=== PATIENT | male | born 1970 | race Caucasian/White ===

== ENCOUNTER 2021-02-22 21:39 | Emergency (ER) | payer BC, OTHER ==
[2021-02-22] MEDS ORDERED: MORPHINE SULFATE 4 MG/ML SYRINGE IV STA (22:39)
--- NOTE | 2021-02-22 22:39 | ED ---
Abdominal Pain HPI - General Chief Complaint: Abdominal Pain Stated Complaint: Stomach pain Time Seen by Provider: 02/22/21 21:57 Source: patient Mode of arrival: ambulatory Limitations: no limitations - History of Present Illness Initial Comments: This patient is a 50-year-old man with history of cirrhosis who presents for evaluation due to increase in abdominal distention and decreased drainage from his abdominal dialysis catheter. The patient states that he has had indwelling catheter used to drain his ascites going back for over a year. He states that he is usually able to drain approximately 2 L per day of fluid from his abdomen. Last week he was admitted because the dialysis catheter had stopped draining his ascites. It been admitted here on February 15, diagnosed with bacterial peritonitis, and stayed in the hospital until February 19. The catheter had resumed draining and he was feeling better. The patient did go home with oral antibiotics and was to follow-up with his [facility] physicians. Patient states that in the interim his catheter was draining less and today it has not drained at all. He is having increasing pressure type pain to the abdomen. No fever or chills. No other symptoms. MD Complaint: abdominal pain -: days(s) Location: diffuse Radiation: none Migration to: no migration Severity: moderate Quality: aching, fullness Consistency: constant Improves With: nothing Worsens With: nothing Associated Symptoms: denies other symptoms - Related Data Home Medications Medication Instructions Recorded Confirmed Ascorbic Acid [Vitamin C] 500 mg PO DAILY 02/15/21 02/23/21 Cholecalciferol [Vitamin D3 (25 150 mcg PO DAILY 02/15/21 02/23/21 Mcg = 1000 Iu)] Ferrous Sulfate [Iron (65 MG 325 mg PO DAILY 02/15/21 02/23/21 Elemental)] Folic Acid 0.4 mg PO BID 02/15/21 02/23/21 Inulin/Chromium Picolinate [Fiber 1 tab PO DAILY 02/15/21 02/23/21 Gummies Chew] L.acidoph,Paracasei, B.lactis 1 cap PO DAILY 02/15/21 02/23/21 [Probiotic] Multivitamins, Thera [Multivitamin 1 tab PO DAILY 02/15/21 02/23/21 (formulary)] Super B Complex 1 tab PO DAILY 02/15/21 02/23/21 Turmeric Root Extract [Turmeric] 500 mg PO DAILY 02/15/21 02/23/21 metFORMIN HCL ER [Glucophage XR] 1,000 mg PO DAILY 02/15/21 02/23/21 sitaGLIPtin PHOS/metFORMIN HCL 1 tab PO HS 02/15/21 02/23/21 [Janumet Xr 100-1,000 mg Tablet] Previous Rx's Medication Instructions Recorded Cefuroxime Axetil [Ceftin] 500 mg PO BID 10 Days #20 tab 02/19/21 Allergies Allergy/AdvReac Type Severity Reaction Status Date / Time codeine Allergy Unknown Verified 02/23/21 07:07 Review of Systems ROS Statement: Those systems with pertinent positive or pertinent negative responses have been documented in the HPI. ROS Other: All systems not noted in ROS Statement are negative. Constitutional: Denies: fever, chills, weakness Respiratory: Denies: cough, dyspnea Cardiovascular: Reports: edema (Chronic bilateral leg edema). Denies: chest pain, palpitations Gastrointestinal: Reports: as per HPI, abdominal pain. Denies: nausea, vomiting, diarrhea, constipation Genitourinary: Denies: dysuria, hematuria Musculoskeletal: Denies: back pain Skin: Denies: rash Neurological: Denies: headache, weakness Past Medical History Past Medical History: Diabetes Mellitus, Hyperlipidemia, Hypertension Additional Past Medical History / Comment(s): colon ca History of Any Multi-Drug Resistant Organisms: None Reported Additional Past Surgical History / Comment(s): peritoneal cath placed Past Psychological History: No Psychological Hx Reported Smoking Status: Never smoker Past Alcohol Use History: None Reported Past Drug Use History: Marijuana - Past Family History Father Family Medical History: Cancer General Exam General appearance: alert, in no apparent distress Head exam: Present: atraumatic, normocephalic Eye exam: Present: normal appearance. Absent: scleral icterus, conjunctival injection Neck exam: Present: normal inspection Respiratory exam: Present: normal lung sounds bilaterally. Absent: respiratory distress, wheezes, rales, rhonchi, stridor Cardiovascular Exam: Present: regular rate, normal rhythm, normal heart sounds. Absent: systolic murmur, diastolic murmur, rubs, gallop GI/Abdominal exam: Present: soft, distended, normal bowel sounds. Absent: tenderness, guarding, rebound, rigid, mass, pulsatile mass, hernia Extremities exam: Present: normal inspection, normal capillary refill. Absent: pedal edema, calf tenderness Back exam: Present: normal inspection. Absent: CVA tenderness (R), CVA tenderness (L) Neurological exam: Present: alert Skin exam: Present: warm, dry, intact, normal color. Absent: rash Course Vital Signs 02/22/21 02/23/21 02/23/21 21:42 00:59 04:36 Temperature 98 F 97.4 F L Pulse Rate 100 82 84 Respiratory 19 18 14 Rate Blood Pressure 131/85 116/79 111/79 O2 Sat by Pulse 98 99 Oximetry 02/23/21 02/23/21 02/23/21 04:46 04:56 05:00 Temperature 97.4 F L 97.5 F L Pulse Rate 80 76 Respiratory 17 14 Rate Blood Pressure 100/72 101/73 O2 Sat by Pulse 99 98 Oximetry 02/23/21 02/23/21 02/23/21 05:22 05:26 06:19 Temperature 97.5 F L 97.8 F Pulse Rate 71 72 Respiratory 14 14 Rate Blood Pressure 98/71 100/72 O2 Sat by Pulse 98 100 Oximetry - Reevaluation(s) Reevaluation #1: 02/23/21 02:30 Case is discussed with sound physician, requests to see if [facility] would consider transfer of this patient given that his primary informatics scientist is through the [place]. Discussed case with Dr. Lawson there, and they are currently unable to accept patient for transfer given capacity issues. Medical Decision Making - Lab Data Result diagrams: 02/22/21 22:46 02/22/21 23:07 Lab Results 02/22/21 02/22/21 02/22/21 Range/Units 22:46 23:07 23:07 WBC 3.9 (3.8-10.6) k/uL RBC 2.45 L (4.30-5.90) m/uL Hgb 6.0 L* (13.0-17.5) gm/dL Hct 19.4 L* (39.0-53.0) % MCV 79.1 L (80.0-100.0) fL MCH 24.5 L (25.0-35.0) pg MCHC 31.0 (31.0-37.0) g/dL RDW 15.8 H (11.5-15.5) % Plt Count 335 (150-450) k/uL MPV 7.8 Neutrophils % 70 % Lymphocytes % 15 % Monocytes % 7 % Eosinophils % 5 % Basophils % 1 % Neutrophils # 2.8 (1.3-7.7) k/uL Lymphocytes # 0.6 L (1.0-4.8) k/uL Monocytes # 0.3 (0-1.0) k/uL Eosinophils # 0.2 (0-0.7) k/uL Basophils # 0.0 (0-0.2) k/uL Hypochromasia Moderate Poikilocytosis Slight ESR 54 H (0-15) mm/hr PT 10.7 (9.0-12.0) sec INR 1.0 (<1.2) APTT 22.8 (22.0-30.0) sec Sodium 132 L (137-145) mmol/L Potassium 3.7 (3.5-5.1) mmol/L Chloride 105 (98-107) mmol/L Carbon Dioxide 23 (22-30) mmol/L Anion Gap 4 mmol/L BUN 24 H (9-20) mg/dL Creatinine 1.41 H (0.66-1.25) mg/dL Est GFR (CKD-EPI)AfAm 68 (>60 ml/min/1.73 sqM) Est GFR (CKD-EPI)NonAf 59 (>60 ml/min/1.73 sqM) Glucose 197 H (74-99) mg/dL Calcium 7.5 L (8.4-10.2) mg/dL Total Bilirubin <0.1 L (0.2-1.3) mg/dL AST 25 (17-59) U/L ALT 15 (4-49) U/L Alkaline Phosphatase 242 H (38-126) U/L Total Protein 4.6 L (6.3-8.2) g/dL Albumin 1.7 L (3.5-5.0) g/dL Blood Type Blood Type Confirm Blood Type Recheck Bld Type Recheck Status Antibody Screen Crossmatch Spec Expiration Date 02/23/21 02/23/21 Range/Units 02:45 02:51 WBC (3.8-10.6) k/uL RBC (4.30-5.90) m/uL Hgb (13.0-17.5) gm/dL Hct (39.0-53.0) % MCV (80.0-100.0) fL MCH (25.0-35.0) pg MCHC (31.0-37.0) g/dL RDW (11.5-15.5) % Plt Count (150-450) k/uL MPV Neutrophils % % Lymphocytes % % Monocytes % % Eosinophils % % Basophils % % Neutrophils # (1.3-7.7) k/uL Lymphocytes # (1.0-4.8) k/uL Monocytes # (0-1.0) k/uL Eosinophils # (0-0.7) k/uL Basophils # (0-0.2) k/uL Hypochromasia Poikilocytosis ESR (0-15) mm/hr PT (9.0-12.0) sec INR (<1.2) APTT (22.0-30.0) sec Sodium (137-145) mmol/L Potassium (3.5-5.1) mmol/L Chloride (98-107) mmol/L Carbon Dioxide (22-30) mmol/L Anion Gap mmol/L BUN (9-20) mg/dL Creatinine (0.66-1.25) mg/dL Est GFR (CKD-EPI)AfAm (>60 ml/min/1.73 sqM) Est GFR (CKD-EPI)NonAf (>60 ml/min/1.73 sqM) Glucose (74-99) mg/dL Calcium (8.4-10.2) mg/dL Total Bilirubin (0.2-1.3) mg/dL AST (17-59) U/L ALT (4-49) U/L Alkaline Phosphatase (38-126) U/L Total Protein (6.3-8.2) g/dL Albumin (3.5-5.0) g/dL Blood Type O Positive Blood Type Confirm O Positive Blood Type Recheck No Previous Record Bld Type Recheck Status CABO Indicated Antibody Screen NEGATIVE Crossmatch See Detail Spec Expiration Date 02/26/20212344 Disposition Clinical Impression: Ascites, Anemia Disposition: HOME SELF-CARE Condition: Good Instructions (If sedation given, give patient instructions): Ascites (ED) Additional Instructions: As we discussed, follow-up with your surgeon regarding the abdominal drain. Is patient prescribed a controlled substance at d/c from ED?: No Referrals: Ramon Wall DO [Primary Care Provider] - 1-2 days Irma Lainez MD [STAFF PHYSICIAN] - 1-2 days
[2021-02-22 23:19] LABS: Basophils % (A) 1 %; Eosinophils # (A) 0.2 k/uL (0-0.7); Eosinophils % (A) 5 %; Hypochromasia Moderate; Lymphocytes # (A) 0.6 k/uL (1.0-4.8); Lymphocytes % (A) 15 %; MCH 24.5 pg (25.0-35.0); MCV 79.1 fL (80.0-100.0); Mean Platelet Volume 7.8; Monocytes # (A) 0.3 k/uL (0-1.0); Monocytes % (A) 7 %; Neutrophils # (A) 2.8 k/uL (1.3-7.7); Neutrophils % (A) 70 %; Platelet Count 335 k/uL (150-450); Poikilocytosis Slight; RBC 2.45 m/uL (4.30-5.90); RDW 15.8 % (11.5-15.5); WBC 3.9 k/uL (3.8-10.6)
[2021-02-22 23:31] LABS: HCT 19.4 % (39.0-53.0)
[2021-02-22 23:41] LABS: Partial Thromboplastin Time 22.8 sec (22.0-30.0); Prothrombin Time 10.7 sec (9.0-12.0)
[2021-02-23] LABS: ALT 15 U/L (4-49); AST 25 U/L (17-59); African American GFR (CKD) 68 (>60 ml/min/1.73 sqM); Albumin 1.7 g/dL (3.5-5.0); Alkaline Phosphatase 242 U/L (38-126); Anion Gap 4 mmol/L; Blood Urea Nitrogen 24 mg/dL (9-20); Calcium 7.5 mg/dL (8.4-10.2); Carbon Dioxide 23 mmol/L (22-30); Chloride 105 mmol/L (98-107); Glucose 197 mg/dL (74-99); Non-African American GFR(CKD) 59 (>60 ml/min/1.73 sqM); Potassium 3.7 mmol/L (3.5-5.1); Sodium 132 mmol/L (137-145); Total Bilirubin <0.1 mg/dL (0.2-1.3); Total Protein 4.6 g/dL (6.3-8.2)
[2021-02-23 00:15] LABS: Erythrocyte Sedimentation Rate 54 mm/hr (0-15)
[2021-02-23] MEDS ORDERED: MORPHINE SULFATE 4 MG/ML SYRINGE IVP STA (04:31)
[2021-02-23 06:21] VITALS: TEMP 97.8
[2021-02-23 08:02] VITALS: BP 102/75; PULSE 77; RESP 18
== END 2021-02-23 07:58 | disposition home or self-care (01) ==
LOC: EC 21:39
DX: R18.8 Other ascites (principal); D64.9 Anemia, unspecified; I10 Essential (primary) hypertension; E78.5 Hyperlipidemia, unspecified; E11.9 Type 2 diabetes mellitus without complications; F12.90 Cannabis use, unspecified, uncomplicated; Z79.4 Long term (current) use of insulin; Z88.5 Allergy status to narcotic agent; Z85.038 Personal history of other malignant neoplasm of large intestine
CPT/HCPCS: 99284; 96374; 96376; 36415; 86900; 86901; 80053; 85652; 85025; 85610; 85730; 86850; 86920; P9016; J2270 ×2